=== PATIENT | female | born 1990 | race Caucasian/White ===

== ENCOUNTER 2023-03-10 19:54 | Emergency (ER) | payer MEDICAID ==
[2023-03-10] MEDS ORDERED: NS IV 1000 ML 1,000 ML IV STA (20:11)
[2023-03-10] MEDS ORDERED: KETOROLAC 30 MG/ML VIAL IVP ONE (20:15)
--- NOTE | 2023-03-10 20:15 | ED Abdominal Pain ---
General Chief Complaint: Abdominal/GI Problems Stated Complaint: DIARRHEA|NOSE PAIN Nursing Triage Note: PT AMB TO [facility] WITH CC OF GENERALIZED ABD PAIN X 2 DAYS. PT REPORTS DIARRHEA. DENIES FEVER, N/V. PT ALSO CONCERNED OF NOSE PAIN X 2WEEKS. PT REPORTS WAS PLAYING BASEBALL WHEN SHE WAS HIT IN THE NOSE BY THE BALL. DENIES LOC. Source of Information: Patient Exam Limitations: No Limitations (PINA RAHMAN) History of Present Illness Date Seen by Provider: Mar 10, 2023 Time Seen by Provider: 20:13 Initial Comments Patient is a 32-year-old female who presents to ED with generalized abdominal pain. Pain started 2 days ago. Described as sharp and intermittent. Once the pain starts she has few episodes of diarrhea. She reports 10+ episodes of diarrhea over the past 2 days without any blood or mucus. No vomiting. No history of previous abdominal surgery. She states she was seen at the clinic was given Bentyl without much improvement. Denies of any dysuria, increased urine frequency or vaginal bleeding or vaginal discharge. Last menstrual cycle was 1 week ago. Denies of any fever, chills, cough, abdominal pain, headache, dizziness, sore throat or ear pain. Denies of any recent travels. No recent antibiotic use. No history inflammatory bowel disease or family history. Patient also reports nasal bridge pain. States she was hit by baseball 2 weeks ago while batting. She report bilateral nosebleed. She had bruising around the eyes. Bruising improved but she reports continued pain to her nasal bridge. Denies of any difficulty breathing. Denies loss of consciousness, headache, dizziness, visual changes (PINA RAHMAN) Allergies and Home Medications Allergies Coded Allergies: No Known Drug Allergies (Unverified , 03/10/23) Patient Home Medication List Home Medication List Reviewed: Yes (PINA ARHMAN) Review of Systems Review of Systems Constitutional: No chills, No diaphoresis, No fever, No malaise, No weakness EENTM: No Blurred Vision, No Double Vision, No Eye Pain; Nose Pain Respiratory: Denies Cough, Denies Orthopnea Cardiovascular: Denies See HPI, Denies Chest Pain Gastrointestinal: Abdominal Pain; Denies Constipated; Diarrhea; Denies Nausea, Denies Vomiting Genitourinary: Denies Burning, Denies Discharge Musculoskeletal: No back pain, No joint pain Skin: No change in hair/nails (PINA RAHMAN) All Other Systems Reviewed Negative Unless Noted: Yes (PINA RAHMAN) Past Tffcdga-Veptqq-Daydag Hx Patient Social History Tobacco Use?: No Substance use?: Yes Substance type: Marijuana Substance frequency: Several times a month Alcohol Use?: Yes Alcohol type: Beer Alcohol Frequency: Once in a while (PINA RAHMAN) Past Medical History Surgery/Hospitalization HX: GALLBLADDER (PINA RAHMAN) Physical Exam Vital Signs Vital Signs - First Documented 03/10/23 20:01 Temp 36.5 Pulse 94 Resp 18 B/P (MAP) 123/88 (100) Pulse Ox 98 O2 Delivery Room Air (PELON CERVANTES DO) Vital Signs Capillary Refill : Less Than 3 Seconds (PINA RAHMAN) Height/Weight/BMI Height: '" Weight: lbs. oz. kg; BMI Method: General Appearance: WD/WN, no apparent distress HEENT: PERRL/EOMI, normal ENT inspection, TMs normal, pharynx normal Neck: non-tender, full range of motion, supple Respiratory: chest non-tender, lungs clear, normal breath sounds, no respiratory distress, no accessory muscle use Cardiovascular: regular rate, rhythm, no edema, no gallop, no JVD Gastrointestinal: normal bowel sounds, non tender, soft, no organomegaly Extremities: normal range of motion, non-tender, normal inspection, no pedal edema Back: normal inspection, no CVA tenderness Neurologic/Psychiatric: regional cra II-XII nml as tested, no motor/sensory deficits, alert, normal mood/affect, oriented x 3 Skin: normal color, warm/dry (PINA RAHMAN) Progress/Results/Core Measures Results/Orders Lab Results Laboratory Tests Test 03/10/23 20:05 03/10/23 20:40 Range/Units White Blood Count 8.5 4.3-11.0 10^3/uL Red Blood Count 5.05 3.80-5.11 10^6/uL Hemoglobin 13.5 11.5-16.0 g/dL Hematocrit 42 35-52 % Mean Corpuscular Volume 83 80-99 fL Mean Corpuscular Hemoglobin 27 25-34 pg Mean Corpuscular Hemoglobin Concent 32 32-36 g/dL Red Cell Distribution Width 12.4 10.0-14.5 % Platelet Count 344 130-400 10^3/uL Mean Platelet Volume 10.0 9.0-12.2 fL Immature Granulocyte % (Auto) 0 % Neutrophils (%) (Auto) 59 42-75 % Lymphocytes (%) (Auto) 35 12-44 % Monocytes (%) (Auto) 4 0-12 % Eosinophils (%) (Auto) 1 0-10 % Basophils (%) (Auto) 1 0-10 % Neutrophils # (Auto) 5.0 1.8-7.8 10^3/uL Lymphocytes # (Auto) 2.9 1.0-4.0 10^3/uL Monocytes # (Auto) 0.4 0.0-1.0 10^3/uL Eosinophils # (Auto) 0.1 0.0-0.3 10^3/uL Basophils # (Auto) 0.1 0.0-0.1 10^3/uL Immature Granulocyte # (Auto) 0.0 0.0-0.1 10^3/uL Sodium Level 139 135-145 MMOL/L Potassium Level 3.2 L 3.6-5.0 MMOL/L Chloride Level 108 H 98-107 MMOL/L Carbon Dioxide Level 20 L 21-32 MMOL/L Anion Gap 11 5-14 MMOL/L Blood Urea Nitrogen 7 7-18 MG/DL Creatinine 0.93 0.60-1.30 MG/DL Estimat Glomerular Filtration Rate 83 BUN/Creatinine Ratio 8 Glucose Level 119 H 70-105 MG/DL Calcium Level 9.7 8.5-10.1 MG/DL Corrected Calcium 9.5 8.5-10.1 MG/DL Total Bilirubin 0.4 0.1-1.0 MG/DL Aspartate Amino Transf (AST/SGOT) 29 5-34 U/L Alanine Aminotransferase (ALT/SGPT) 44 0-55 U/L Alkaline Phosphatase 68 40-136 U/L Total Protein 7.8 6.4-8.2 GM/DL Albumin 4.3 3.2-4.5 GM/DL Lipase 21 8-78 U/L Urine Color YELLOW Urine Clarity CLEAR Urine pH 6.0 5-9 Urine Specific [place] >=1.030 1.016-1.022 Urine Protein 1+ H NEGATIVE Urine Glucose (UA) NEGATIVE NEGATIVE Urine Ketones TRACE H NEGATIVE Urine Nitrite NEGATIVE NEGATIVE Urine Bilirubin 1+ H NEGATIVE Urine Urobilinogen 1.0 < = 1.0 MG/DL Urine Leukocyte Esterase NEGATIVE NEGATIVE Urine RBC (Auto) NEGATIVE NEGATIVE Urine RBC 0-2 /HPF Urine WBC 0-2 /HPF Urine Squamous Epithelial Cells 25-50 H /HPF Urine Crystals PRESENT H /LPF Urine Calcium Oxalate Crystals FEW H /LPF Urine Amorphous Sediment MOD JANICE URATES H /LPF Urine Bacteria FEW H /HPF Urine Casts PRESENT /LPF Urine Hyaline Casts 10-25 H /LPF Urine Mucus LARGE H /LPF Urine Culture Indicated NO Urine Test NEGATIVE NEGATIVE (BILLY,PELON K DO) Medications Given in ED Current Medications Medications Dose Ordered Sig/Darlene Route Start Time Stop Time Status Last Admin Dose Admin Ketorolac Tromethamine 30 mg ONCE ONCE IVP 03/10/23 20:15 03/10/23 20:16 DC 03/10/23 20:19 30 MG Potassium Chloride 40 meq ONCE ONCE PO 03/10/23 20:45 03/10/23 20:46 DC 03/10/23 20:49 40 MEQ (BILLY,PELON K DO) Vital Signs/I&O 03/10/23 03/10/23 20:01 21:25 Temp 36.5 Pulse 94 75 Resp 18 18 B/P (MAP) 123/88 (100) 116/79 Pulse Ox 98 98 O2 Delivery Room Air Room Air (BILLY,PELON K DO) Blood Pressure Mean: 100 Departure Communication (PCP) Differential diagnosis, gastroenteritis, gastritis, colitis. Patient on arrival no acute distress. Vital signs stable. Diarrhea for the past 2 days with generalized abdominal discomfort. On exam she has no pinpoint tenderness. No rigidity or guarding. No specific urinary symptoms. Due to the diarrhea CBC, CMP, lipase and urinalysis with test. She denies of any recent antibiotic use or travels. Denies of any blood or mucousy stool. No flulike symptoms. CBC showed normal white blood count, hemoglobin and platelets. Chemistry showed a potassium 3.2. Normal kidney function and liver function and lipase function. Urinalysis without strong evidence of infection negative for . She received 40 mEq of oral potassium. Tolerating p.o. fluids. No current abdominal pain. Suspect that this is likely more viral. Due to no specific abdominal tenderness imaging was held. Discussed with patient I recommend conservative treatment at this time. She has no predisposing risk factors for C. difficile such as antibiotic use. Without any fever or bloody stools or mucousy stool unlikely bacterial. Recommend staying hydrated. Pedialyte. Anti-inflammatories for pain. Clear liquid diet for the next 2 or 3 days. If increasing pain fever bloody mucousy stools or continue worsening diarrhea would likely benefit with stool culture. Follow-up with your PCP in 2 to 3 days for reevaluation. Discussed with patient she does have some mild nasal bridge tenderness. No evidence of septal hematoma on exam. Did offer CT scan of the face however this would not change the treatment plan. There is no obvious deformity. if a small fracture this potentially could take up to a month to fully heal. She agreed to not proceed with any imaging. If continued pain recommend following up with ENT. (PINA RAHMAN) Impression Primary Impression: Abdominal pain Disposition: HOME, SELF-CARE Condition: Stable Departure-Patient Inst. Decision time for Depature: 21:06 (PINA RAHMAN) Referrals: REYMUNDO TERAN MD [facility] (PCP/Family) Primary Care Physician Patient Instructions: Abdominal Pain, Adult ED Add. Discharge Instructions: All discharge instructions reviewed with patient and/or family. Voiced understanding. Work/School Note: Work Release Form Date Seen in the Emergency Department: Mar 10, 2023 Return to Work: Mar 12, 2023 ATTENDING PHYSICIAN NOTE: I WAS PHYSICALLY PRESENT ER PHYSICIAN BUT I WAS NOT INVOLVED IN ANY DECISION MAKING OR ANY CARE OF THIS PATIENT AND I AM NOT COLLABORATING PHYSICIAN (PELON CERVANTES DO) PINA RAHMAN Mar 10, 2023 20:15 PELON CERVANTES DO Mar 11, 2023 05:00
[2023-03-10 20:17] LABS: BASOPHILS # (AUTO) 0.1 10^3/uL (0.0-0.1); BASOPHILS % (AUTO) 1 % (0-10); EOSINOPHILS # (AUTO) 0.1 10^3/uL (0.0-0.3); EOSINOPHILS % (AUTO) 1 % (0-10); HEMATOCRIT 42 % (35-52); HEMOGLOBIN 13.5 g/dL (11.5-16.0); LYMPHOCYTES # (AUTO) 2.9 10^3/uL (1.0-4.0); LYMPHOCYTES % (AUTO) 35 % (12-44); MEAN CORPUSCULAR HEMOGLOBIN 27 pg (25-34); MEAN CORPUSCULAR HGB CONC 32 g/dL (32-36); MEAN CORPUSCULAR VOLUME 83 fL (80-99); MONOCYTES # (AUTO) 0.4 10^3/uL (0.0-1.0); MONOCYTES % (AUTO) 4 % (0-12); NEUTROPHILS % (AUTO) 59 % (42-75); PLATELET COUNT 344 10^3/uL (130-400); WHITE BLOOD COUNT 8.5 10^3/uL (4.3-11.0)
[2023-03-10 20:25] LABS: ALBUMIN 4.3 GM/DL (3.2-4.5); POTASSIUM 3.2 MMOL/L (3.6-5.0)
[2023-03-10 20:26] LABS: CALCIUM 9.7 MG/DL (8.5-10.1)
[2023-03-10 20:27] LABS: TOTAL PROTEIN 7.8 GM/DL (6.4-8.2)
[2023-03-10 20:29] LABS: BILIRUBIN,TOTAL 0.4 MG/DL (0.1-1.0)
[2023-03-10] MEDS ORDERED: KCL 20 MEQ TAB (K-DUR) PO ONE (20:45)
[2023-03-10 20:48] LABS: CLARITY,URINE CLEAR; COLOR,URINE YELLOW; GLUCOSE, URINE (UA) NEGATIVE (NEGATIVE); KETONES,URINE TRACE (NEGATIVE); LEUKOCYTE ESTERASE ,URINE NEGATIVE (NEGATIVE); NITRITE,URINE NEGATIVE (NEGATIVE); PROTEIN,URINE 1+ (NEGATIVE)
[2023-03-10 20:50] LABS: CREATININE SERUM 0.93 MG/DL (0.60-1.30)
[2023-03-10 21:01] LABS: BACTERIA,URINE FEW /HPF; RBC,URINE 0-2 /HPF; WBC,URINE 0-2 /HPF
[2023-03-10 21:02] LABS: AMORPHOUS SEDIMENT,UR MOD AMOR URATES /LPF; BILIRUBIN,URINE 1+ (NEGATIVE); CALCIUM OXALATE CRYSTALS,UR FEW /LPF; SQUAMOUS EPITHELIAL CELL,UR 25-50 /HPF
[2023-03-10 21:25] VITALS: BP 116/79
== END 2023-03-10 21:27 | disposition home or self-care (01) ==
LOC: ER 19:59
DX: R10.84 Generalized abdominal pain (principal); R19.7 Diarrhea, unspecified; J34.89 Other specified disorders of nose and nasal sinuses; W21.03XA Struck by baseball, initial encounter; Y92.320 Baseball field as the place of occurrence of the external cause; Y93.64 Activity, baseball
CPT/HCPCS: 36415; 80053; 81000; 83690; 84703; 85025